=== PATIENT | female | born 1975 | race Caucasian/White ===

== ENCOUNTER 2018-10-08 19:52 | Emergency (ER) | payer OTHER ==
[~2018-10-08] VITALS: Ht 165.1 cm; Wt 77.1 kg
--- OUTSIDE RECORDS SUMMARY | 2018-10-08 19:55 | XMS REPORT | Clinical Summary ---
Author Author [facility] Organization [facility] Address Unknown Phone Unavailable Care Team Providers Care Candy Counter Clerk Name Role Phone Monty Jones MD PCP Allergies No Known Allergies Medications End Date Status Medication Sig Dispensed Refills Start Date Active thyroid, pork, (ARMOUR [place] 0 THYROID) 15 mg tablet Thyroid 15 mg tablet Active spironolactone spironolacton 0 (ALDACTONE) 25 MG tablet e 25 mg tablet Active nitrofurantoin Take 50 mg by 0 (MACRODANTIN) 50 MG mouth 4 capsule (four) times a day. Active DIINDOLYLMETHANE, BULK, 0 MISC 12/08/2018 Active nitrofurantoin, Take one 100 90 capsule 1 macrocrystal-monohydrate, mg tablet 8 (MACROBID) 100 MG before and capsuleIndications: after Recurrent UTI intercourse as needed. 01/06/2018 Discontinued nitrofurantoin, nitrofurantoi 0 macrocrystal-monohydrate, n (MACROBID) 100 MG capsule monohydrate/m acrocrystals 100 mg capsule Take 1 capsule every 12 hours by oral route for 7 days. 01/11/2018 acetaminophen-codeine Take 1 tablet 15 tablet 0 (TYLENOL WITH CODEINE #3) by mouth 8 300-30 mg per tablet every 6 (six) hours as needed for moderate pain for up to 5 days. 01/13/2018 ciprofloxacin (CIPRO) 500 Take 1 tablet 14 tablet 0 MG tablet (500 mg 8 total) by mouth 2 (two) times a day for 7 days. 01/18/2018 terconazole (TERAZOL 7) Insert 1 45 g 0 0.4 % vaginal cream applicator 8 into the vagina nightly for 7 days. 04/16/2018 sulfamethoxazole-trimetho Take 1 tablet 20 tablet 0 prim (BACTRIM DS) 800-160 by mouth 2 8 mg per tablet (two) times a day for 10 days. smx-tmp DS (BACTRIM) 800-160 mg tabs (1tab q12 D10) 05/06/2018 acetaminophen-codeine Take 1 tablet 14 tablet 0 (TYLENOL WITH CODEINE #3) by mouth 8 300-30 mg per tablet every 6 (six) hours as needed for moderate pain for up to 30 days. 04/21/2018 sulfamethoxazole-trimetho Take one 6 tablet 0 prim (BACTRIM DS) 800-160 800mg tablet 8 mg per tabletIndications: twice daily Prophylactic antibiotic the day before, the day of and the day after the procedure. Status Hospital, Clinic, or Ordered Dose Route Frequency Start End Date Other Facility Date Administered Medication Ended lidocaine HCl (URO-JET) 2 TP once 04/20/20 % jellyIndications: 18 8 History of suburethral sling procedure, Recurrent UTI Active Problems Problem Noted Date Pelvic pain 03/05/2018 Levator spasm 03/05/2018 Pelvic floor weakness in female 03/05/2018 History of suburethral sling procedure 03/05/2018 Chronic constipation 03/05/2018 Recurrent UTI 03/05/2018 History of Crohn's disease 03/05/2018 Encounters Care Team Description Date Type Specialty Camille Braun MA 05/22/2018 Telephone Urogynecology Margot Hammond MD Recurrent UTI (Primary Dx); Chronic pelvic pain in female; Hematuria, unspecified type 04/30/2018 Office Visit Urology Ximena Pratt MD MPH History of suburethral sling procedure (Primary Dx); Hematuria, gross; Suburethral cyst; 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 Office Visit Urogynecology Ximena Pratt MD MPH Recurrent UTI (Primary Dx); History of suburethral sling procedure; Prophylactic antibiotic; Hematuria, gross 04/20/2018 Procedure visit Urogynecology Ximena Pratt MD MPH 04/20/2018 Orders Only Urogynecology Anabel Talavera, DIMA Hematuria, gross (Primary Dx) 04/13/2018 Telephone Urogynecology Camille Braun MA 04/10/2018 Telephone Urogynecology Susan Cha MD Acute UTI (Primary Dx) 04/06/2018 Emergency Emergency Medicine Anabel Talavera RN 04/06/2018 Telephone Urogynecology Anabel Talavera RN 04/06/2018 Telephone Urogynecology Anabel Talavera RN Recurrent UTI (Primary Dx) 03/10/2018 Refill Urogynecology Ximena Pratt MD MPH Dyspareunia in female (Primary Dx); Pelvic pain; Levator spasm; Pelvic floor weakness in female; History of suburethral sling procedure; Chronic constipation; Recurrent UTI; History of Crohn's disease 03/05/2018 Office Visit Urogynecology Beryl Parks MD Pelvic pain (Primary Dx); Urinary tract infection due to extended-spectrum beta lactamase (ESBL) producing Escherichia coli 01/28/2018 Office Visit Obstetrics and Gynecology Beryl Parks MD Female pelvic pain; Generalized abdominal pain 01/28/2018 Ancillary Obstetrics and Gynecology Procedure Beryl Parks MD 01/11/2018 Orders Only Obstetrics and Gynecology Erasto Carnes DO Acute cystitis without hematuria (Primary Dx) 01/06/2018 Emergency Emergency Medicine Nik Velázquez LVN 01/05/2018 Telephone Obstetrics and Gynecology Beryl Parks MD Female pelvic pain (Primary Dx); Generalized abdominal pain 12/31/2017 Office Visit Obstetrics and Gynecology after 10/07/2017 Family History Medical History Relation Name Comments Breast cancer Maternal Aunt Depression Mother Hernia Mother Interstitial cystitis Mother Cancer Sister Depression Sister Relation Name Status Comments Father Maternal Aunt Mother Sister Social History Date Tobacco Use Types Packs/Day Years Used Former Smoker Cigarettes Smokeless Tobacco: Never Used Alcohol Use Drinks/Week oz/Week Comments No occasional Sex Assigned at Date Recorded Not on file Industry Job Start Date Occupation Not on file Not on file Not on file Travel End Travel History Travel Start No recent travel history available. Last Filed Vital Signs Time Taken Vital Sign Reading 04/30/2018 1:48 PM CDT Blood Pressure 130/85 04/30/2018 1:48 PM CDT Pulse 80 04/29/2018 11:25 AM CDT Temperature 36.6 C (97.8 F) 04/06/2018 2:06 PM CDT Respiratory Rate 15 04/06/2018 2:06 PM CDT Oxygen Saturation 93% - Inhaled Oxygen - Concentration 04/30/2018 1:48 PM CDT Weight 80.7 kg (178 lb) 04/30/2018 1:48 PM CDT Height 165.1 cm (5' 5") 04/30/2018 1:48 PM CDT Body Mass Index 29.62 Plan of Treatment Health Maintenance Due Date Last Done Comments CERVICAL CANCER SCREENING 1998 INFLUENZA VACCINE 02/04/2019 Procedures Comments Procedure Name Priority Date/Time Associated Diagnosis POC URINALYSIS DIPSTICK Routine 04/30/2018 Recurrent UTI 2:26 PM CDT [id number] Routine 04/30/2018 Recurrent UTI 2:26 PM CDT CYTOLOGY NON-FIELD CONTACT PERSON I Routine 04/20/2018 4:14 PM CDT CYTOLOGY Routine 04/20/2018 (NON-GYNECOLOGICAL) 4:14 PM CDT REQUEST TEST IN QUESTION - CYTO, Routine 04/20/2018 NONGYN 4:14 PM CDT POC URINALYSIS DIPSTICK Routine 04/20/2018 History of suburethral 3:13 PM CDT sling procedure Recurrent UTI CYSTOURETHROSCOPY SIMPLE Routine 04/20/2018 History of suburethral (NO SEDATION) 2:30 PM CDT sling procedure Recurrent UTI CT RENAL STONE PROTOCOL STAT 04/06/2018 4:11 PM CDT ESTIMATED GFR STAT 04/06/2018 2:40 PM CDT COMPREHENSIVE METABOLIC STAT 04/06/2018 PANEL 2:40 PM CDT HC COMPLETE BLD COUNT STAT 04/06/2018 W/AUTO DIFF 2:40 PM CDT URINALYSIS SCREEN AND Routine 04/06/2018 MICROSCOPY, WITH REFLEX 2:32 PM CDT TO CULTURE URINE CULTURE Routine 04/06/2018 2:32 PM CDT GRAM STAIN Routine 04/06/2018 2:32 PM CDT URINE CULTURE Routine 03/05/2018 Pelvic pain 4:11 PM CDT Recurrent UTI POC URINALYSIS DIPSTICK Routine 03/05/2018 Pelvic pain 1:57 PM CDT Recurrent UTI MEASURE POST VOID Routine 03/05/2018 Pelvic pain RESIDUAL 12:45 PM CDT Recurrent UTI URINE CULTURE Routine 01/28/2018 Pelvic pain 5:14 PM CDT Urinary tract infection due to extended-spectrum beta lactamase (ESBL) producing Escherichia coli US PELVIC TRANSVAGINAL Routine 01/28/2018 Female pelvic pain 4:26 PM CDT Generalized abdominal pain CT ABDOMEN PELVIS W STAT 01/06/2018 CONTRAST 10:21 PM CDT AMYLASE LEVEL STAT 01/06/2018 8:52 PM CDT ZZESTIMATED GFR STAT 01/06/2018 8:52 PM CDT PARTIAL THROMBOPLASTIN STAT 01/06/2018 TIME (PTT) 8:52 PM CDT PROTHROMBIN TIME WITH INR STAT 01/06/2018 8:52 PM CDT LIPASE LEVEL STAT 01/06/2018 8:52 PM CDT COMPREHENSIVE METABOLIC STAT 01/06/2018 PANEL 8:52 PM CDT HC COMPLETE BLD COUNT STAT 01/06/2018 W/AUTO DIFF 8:52 PM CDT HCG QUALITATIVE, SERUM STAT 01/06/2018 SCREEN 8:52 PM CDT URINALYSIS SCREEN AND Routine 01/06/2018 MICROSCOPY, WITH REFLEX 8:52 PM CDT TO CULTURE GRAM STAIN Routine 01/06/2018 8:52 PM CDT URINE CULTURE Routine 01/06/2018 8:52 PM CDT NUSWAB VAGINITIS (VG) Routine 12/31/2017 Female pelvic pain 5:15 PM CDT Generalized abdominal pain after 10/07/2017 Results * POC BLADDER SCAN/PVR (04/30/2018 2:26 PM CDT) Test Results 23mlComment: bladder scan Specimen Urine * POC urinalysis dipstick (04/30/2018 2:26 PM CDT) Only the most recent of 3 results within the time period is included. Color urine, POC Yellow Clarity urine, POC Clear Glucose urine, POC Negative Negative Bilirubin urine, POC Negative Negative Ketones urine, POC Negative Negative Specific gravity urine, 1.015 1.005 - 1.030 POC Blood urine, POC Trace (A) Negative pH urine, POC 6.5 5.0, 5.5, 6.0, 6.5, 7.0, 7.5, 8.0, 8.5 Protein urine, POC Negative Negative Urobilinogen urine, POC <2.0 <2.0 Nitrite urine, POC Negative Negative Leukocyte esterase urine, Negative Negative POC Specimen Urine * TEST IN QUESTION - CYTO, NONGYN (04/20/2018 4:14 PM CDT) FINAL RESOLUTION CATH SPCM [employer] BOLIVAR Narrative Performed At FASTING: UNKNOWN QUEST Resulting Agency Comment Performing Organization Information: Site ID: [id number] Name: [facility] Address: [address] [place] [id number] Director: Kenrick House Performing Organization Address City/State/Zipcode Phone Number [employer] [place] [phone] * Cytology Non-Corporate Staff Accountant I (04/20/2018 4:14 PM CDT) Source CATH URINE [facility] Gross description: Comment: [facility] Catheterized urine consists of [facility] cc clear yellow fluid, 1 ThinPrep. Verified as to patient ID/name. Gross exam(s) performed at: [address] [id number] [employer] Manager: KENRICK HOUSE MD Diagnosis Comment: [facility] Negative for malignant cells. [facility] See microscopic description. MICROSCOPIC DESCRIPTION: One ThinPrep is examined.The specimen consists of benign urothelial cells and squamous cells. Narrative Performed At FASTING: UNKNOWN QUEST Resulting Agency Comment Performing Organization Information: Site ID: [id number] Name: [facility], Address: [address] [place] [address] Director: Kenrick House MD Performing Organization Address City/[facility] Cent[facility] Phone Number [place] [phone] [facility] * Cytology (non-gynecological) request (04/20/2018 4:14 PM CDT) Clinical information Comment: None given [facility] Screener Comment: [facility] VXJ, CT(ASCP) [facility] CT screening location: [place] [address] Pathologist Comment: [facility] Naila Rodríguez MD, Board [facility] Certified in Anatomic Pathology and subspeciality in Cytopathology. [phone] (electronic signature) Narrative Performed At FASTING: UNKNOWN QUEST Resulting Agency Comment Performing Organization Information: Site ID: [id number] Name: [facility], Address: [address] [place] [address] Director: Kenrick House MD Performing Organization Address City/[facility] Medical [place] [address] [facility] * Cystourethroscopy simple (no sedation) (04/20/2018 2:30 PM CDT) Narrative Performed At Ximena Pratt MD MPH 04/20/20183:56 PM Cystourethroscopy simple (no sedation) Date/Time: 04/20/2018 2:30 PM Performed by: XIMENA PRATT Authorized by: XIMENA PRATT Consent: Verbal consent obtained. Written consent obtained. Risks and benefits: risks, benefits and alternatives were discussed Consent given by: patient Patient understanding: patient states understanding of the procedure being performed Patient consent: the patient's understanding of the procedure matches consent given Procedure consent: procedure consent matches procedure scheduled Relevant documents: relevant documents present and verified Required items: required blood products, implants, devices, and special equipment available Patient identity confirmed: verbally with patient Time out: Immediately prior to procedure a "time out" was called to verify the correct patient, procedure, equipment, director of operations support and site/side marked as required. Preparation: Patient was prepped and draped in the usual sterile fashion. Local anesthesia used: yes Anesthesia method: Topical. Anesthesia: Local anesthesia used: yes Local anesthetic: Urojet. Anesthetic total: 10 mL Sedation: Patient sedated: no * CT Renal Stone Protocol (04/06/2018 4:11 PM CDT) Narrative Performed At EXAMINATION:CT RENAL STONE PROTOCOL [facility] CLINICAL HISTORY:left flank paindysuria TECHNIQUE: Multiple axial images of the abdomen and pelvis were obtained without intravenous administration of iodinated contrast. Sagittal and coronal computerized reformatted images were also obtained. The lack of intravenous contrast reduces the sensitivity of detecting solid organ disease.Automatic exposure control and iterative reconstruction techniques used to reduce dose. COMPARISON:January 06, 2018 FINDINGS: Kidneys are within normal limits. No focal mass, hydronephrosis or calculi present The liver, gallbladder, spleen, pancreas and adrenals are within normal limits. No significant lymphadenopathy free fluid present The appendix is been removed Diffuse diverticulosis of colon without evidence of diverticulitis. Small bowel is unremarkable Small fat-containing umbilical hernia Pelvis: No significant lymphadenopathy, solid masses or free fluid present Degenerative changes are present throughout the bony structures without evidence of a suspicious focal lesion. Bases are clear IMPRESSION: No renal calculi Diverticulosis in the colon without evidence of diverticulitis [id number] Procedure Note Hm Interface, Radiology Results Incoming - 04/06/2018 4:18 PM CDT EXAMINATION: CT RENAL STONE PROTOCOL CLINICAL HISTORY: left flank pain dysuria TECHNIQUE: Multiple axial images of the abdomen and pelvis were obtained without intravenous administration of iodinated contrast. Sagittal and coronal computerized reformatted images were also obtained. The lack of intravenous contrast reduces the sensitivity of detecting solid organ disease.Automatic exposure control and iterative reconstruction techniques used to reduce dose. COMPARISON: January 06, 2018 FINDINGS: Kidneys are within normal limits. No focal mass, hydronephrosis or calculi present The liver, gallbladder, spleen, pancreas and adrenals are within normal limits. No significant lymphadenopathy free fluid present The appendix is been removed Diffuse diverticulosis of colon without evidence of diverticulitis. Small bowel is unremarkable Small fat-containing umbilical hernia Pelvis: No significant lymphadenopathy, solid masses or free fluid present Degenerative changes are present throughout the bony structures without evidence of a suspicious focal lesion. Bases are clear IMPRESSION: No renal calculi Diverticulosis in the colon without evidence of diverticulitis [id number] Performing Organization Address City/[facility]/Zipcode Phone Number [facility] [address] [place] [address] * Estimated GFR (04/06/2018 2:40 PM CDT) Estimated GFR >=90 mL/min/1.73 m2 [facility] DEPARTMENT OF Comment: PATHOLOGY AND CatergoryUnitsInte GENOMIC MEDICINE rpretation G1 >=90 Normal or high G2 60-89Mildly decreased [id number] Mildly to moderately decreased [id number] Moderately to severely decreased G4 15-29Severely decreased G5 <15Kidney failure The eGFR was calculated using the Chronic Kidney Disease Epidemiology Collaboration (CKD-EPI) equation. Interpretation is based on recommendations of the National Kidney Foundation-Kidney Disease Outcomes Quality Initiative (NKF-KDOQI) published in 2014. Specimen Plasma specimen Performing Organization Address City/State/Zipcode Phone Number [place] [phone] [facility]. [address] [place] [address] PATHOLOGY AND GENOMIC MEDICINE * CBC with platelet and differential (04/06/2018 2:40 PM CDT) Only the most recent of 2 results within the time period is included. WBC 10.4 4.5 - 11.0 k/uL [facility] DEPARTMENT OF PATHOLOGY AND GENOMIC MEDICINE RBC 5.03 4.20 - 5.50 M/uL [facility] DEPARTMENT OF PATHOLOGY AND GENOMIC MEDICINE HGB 15.5 14.0 - 18.0 g/dL [facility] DEPARTMENT OF PATHOLOGY AND GENOMIC MEDICINE HCT 44.7 37.0 - 47.0 % [facility] DEPARTMENT OF PATHOLOGY AND GENOMIC MEDICINE MCV 88.9 82.0 - 100.0 fL [facility] DEPARTMENT OF PATHOLOGY AND GENOMIC MEDICINE MCH 30.8 27.0 - 34.0 pg [facility] DEPARTMENT OF PATHOLOGY AND GENOMIC MEDICINE MCHC 34.7 31.0 - 37.0 g/dL [facility] DEPARTMENT OF PATHOLOGY AND GENOMIC MEDICINE RDW - SD 38.4 37.0 - 55.0 fL [facility] DEPARTMENT OF PATHOLOGY AND GENOMIC MEDICINE MPV 10.1 8.8 - 13.2 fL [facility] DEPARTMENT OF PATHOLOGY AND GENOMIC MEDICINE Platelet count 252 150 - 400 K/uL [facility] DEPARTMENT OF PATHOLOGY AND GENOMIC MEDICINE Nucleated RBC 0.00 /100 WBC [facility] DEPARTMENT OF PATHOLOGY AND GENOMIC MEDICINE Neutrophils 74.6 (H) 39.0 - 69.0 % [facility] DEPARTMENT PATHOLOGY AND GENOMIC MEDICINE Lymphocytes 15.4 (L) 25.0 - 45.0 % [facility] DEPARTMENT OF PATHOLOGY AND GENOMIC MEDICINE Monocytes 8.3 0.0 - 10.0 % [facility] DEPARTMENT OF PATHOLOGY AND GENOMIC MEDICINE Eosinophils 0.9 0.0 - 5.0 % [facility] DEPARTMENT PATHOLOGY AND GENOMIC MEDICINE Basophils 0.5 0.0 - 1.0 % [facility] DEPARTMENT OF PATHOLOGY AND GENOMIC MEDICINE Immature granulocytes 0.3Comment: "Immature 0.0 - 1.0 % [facility] DEPARTMENT OF granulocytes" (promyelocytes, PATHOLOGY AND myelocytes, metamyelocytes) [facility] Specimen Blood Performing Organization Address City/State/Zipcode Phone Number [address] [place] [address] PATHOLOGY AND [employer] MEDICINE * Comprehensive metabolic panel (04/06/2018 2:40 PM CDT) Only the most recent of 2 results within the time period is included. Sodium 140 135 - 148 mEq/L [facility] DEPARTMENT OF PATHOLOGY AND GENOMIC MEDICINE Potassium 4.0 3.5 - 5.0 mEq/L [facility] DEPARTMENT OF PATHOLOGY AND GENOMIC MEDICINE Chloride 102 99 - 109 mEq/L [facility] OF PATHOLOGY AND GENOMIC MEDICINE CO2 27 24 - 31 mEq/L [facility] OF PATHOLOGY AND GENOMIC MEDICINE Anion gap 11@ANIO 7 - 15 mEq/L [facility] DEPARTMENT OF PATHOLOGY AND GENOMIC MEDICINE BUN 9 8 - 24 mg/dL [facility] PATHOLOGY AND GENOMIC MEDICINE Creatinine 0.60 0.50 - 0.90 mg/dL [facility] PATHOLOGY AND GENOMIC MEDICINE Glucose 89 65 - 99 mg/dL [facility] OF PATHOLOGY AND GENOMIC MEDICINE Calcium 9.4 8.6 - 10.6 mg/dL [facility] OF PATHOLOGY AND GENOMIC MEDICINE Protein 7.3 6.3 - 8.2 g/dL [facility] DEPARTMENT OF PATHOLOGY AND GENOMIC MEDICINE Albumin 4.8 3.5 - 5.0 g/dL [facility] DEPARTMENT OF PATHOLOGY AND GENOMIC MEDICINE A/G ratio 1.92 0.70 - 3.80 [facility] DEPARTMENT PATHOLOGY AND GENOMIC MEDICINE Alkaline phosphatase 67 30 - 115 U/L [facility] DEPARTMENT PATHOLOGY AND GENOMIC MEDICINE AST 20 15 - 46 U/L [facility] DEPARTMENT PATHOLOGY AND GENOMIC MEDICINE ALT 24 10 - 55 U/L [facility] DEPARTMENT PATHOLOGY AND GENOMIC MEDICINE Total bilirubin 0.7 0.2 - 1.2 mg/dL [facility] PATHOLOGY AND GENOMIC MEDICINE Specimen Plasma specimen Performing Organization Address City/State/Zipcode Phone Number [facility] [address] [facility] [address] [place] [address] PATHOLOGY AND GENOMIC MEDICINE * Urinalysis screen and microscopy, with reflex to culture (04/06/2018 2:32 PM CDT) Only the most recent of 2 results within the time period is included. Specimen site Clean catch [facility] DEPARTMENT OF PATHOLOGY AND GENOMIC MEDICINE Color, UA Yellow YELLOW [facility] DEPARTMENT OF PATHOLOGY AND GENOMIC MEDICINE Appearance, UA Cloudy (A) Clear [facility] DEPARTMENT OF PATHOLOGY AND GENOMIC MEDICINE Specific gravity, UA 1.016 1.005 - 1.030 [facility] DEPARTMENT OF PATHOLOGY AND GENOMIC MEDICINE pH, UA 6.0 5.0 - 8.0 [facility] DEPARTMENT OF PATHOLOGY AND GENOMIC MEDICINE Protein, UA 2+ (A) Negative [facility] DEPARTMENT OF PATHOLOGY AND GENOMIC MEDICINE Glucose, UA Negative Negative [facility] DEPARTMENT OF PATHOLOGY AND GENOMIC MEDICINE Ketones, UA Negative Negative [facility] DEPARTMENT OF PATHOLOGY AND GENOMIC MEDICINE Bilirubin, UA Negative Negative [facility] DEPARTMENT OF PATHOLOGY AND GENOMIC MEDICINE Blood, UA Large (A) Negative [facility] DEPARTMENT OF PATHOLOGY AND GENOMIC MEDICINE Nitrite, UA Negative NEGATIVE [facility] DEPARTMENT OF PATHOLOGY AND GENOMIC MEDICINE Urobilinogen, UA <2.0 <2.0 E.U./dL [facility] DEPARTMENT PATHOLOGY AND GENOMIC MEDICINE Leukocyte esterase, UA Large (A) Negative [facility] DEPARTMENT OF PATHOLOGY AND GENOMIC MEDICINE Epithelial cells, UA 4 0 - 15 /HPF [facility] DEPARTMENT OF PATHOLOGY AND GENOMIC MEDICINE WBC, UA >200 (H) 0 - 5 /Hpf [facility] DEPARTMENT OF PATHOLOGY AND GENOMIC MEDICINE RBC, UA >200 (H) 0 - 5 /HPF [facility] DEPARTMENT OF PATHOLOGY AND GENOMIC MEDICINE Bacteria, UA None seen None seen [facility] DEPARTMENT OF PATHOLOGY AND GENOMIC MEDICINE WBC clumps, UA Few (A) [facility] DEPARTMENT OF PATHOLOGY AND GENOMIC MEDICINE Yeast, UA None seen None Seen [facility] DEPARTMENT OF PATHOLOGY AND GENOMIC MEDICINE Yeast with pseudohyphae, None seen [facility] DEPARTMENT OF UA PATHOLOGY AND GENOMIC MEDICINE Specimen Urine Performing Organization Address [facility]/Zipcode Phone Number [facility] [place] [address] [facility] [address] [place] [address] PATHOLOGY AND GENOMIC MEDICINE * Gram stain (04/06/2018 2:32 PM CDT) Only the most recent of 2 results within the time period is included. Gram stain result Occasional WBC's [facility] DEPARTMENT OF Occasional Gram positive rods PATHOLOGY AND Comment: GENOMIC MEDICINE Specimen Information Specimen Source: Urine Specimen Site: Clean catch Specimen Urine Performing Organization Address [facility] Centercode Phone Number [facility] DEPARTMENT OF [address] [place] [address] PATHOLOGY AND GENOMIC MEDICINE * Urine culture (04/06/2018 2:32 PM CDT) Only the most recent of 4 results within the time period is included. Urine culture isolate Mixed Gram positive taylor [facility] DEPARTMENT OF 10-2 cfu/ml PATHOLOGY AND (A) GENOMIC MEDICINE Comment: Specimen Information Specimen Source: Urine Specimen Site: Clean catch Specimen Urine Performing Organization Address [facility] Phone Number [facility] DEPARTMENT OF [address] [place] [address] PATHOLOGY AND GENOMIC MEDICINE * Measure post void residual (03/05/2018 12:45 PM CDT) Specimen Urine Narrative Performed At 50 ml collected via f. Cath * US Pelvic Transvaginal (01/28/2018 4:26 PM CDT) Narrative Performed At [facility] S/P HYSTERECTOMY RT OV=3.1 X 1.8 X 2.5 CM LT OV 3.4 X 2.3 X 1.6 CM BILAT OV WNL I have personally reviewed the images, and I agree with the above assessment Beryl Parks MD Performing Organization Address [facility]/Zipcode Phone Number [facility] [address] [place] [phone] * CT Abdomen Pelvis W Contrast (01/06/2018 10:21 PM CDT) Narrative Performed At EXAMINATION:CT ABDOMEN PELVIS W CONTRAST RADIANT CLINICAL HISTORY:abdominal pain TECHNIQUE: Multiple axial images of the abdomen and pelvis were obtained following intravenous administration of iodinated contrast. Sagittal and coronal computerized reformatted images were also obtained. CT imaging was performed with iterative reconstruction technique and/or automated exposure control to reduce radiation dose. COMPARISON:05/28/2013 IMPRESSION: Eventration of right hemidiaphragm is seen. Liver, gallbladder, spleen, pancreas, adrenal glands are normal. Kidneys, ureters are normal. Thick-walled appearance of the bladder is seen, suspicious for cystitis. No free intraperitoneal fluid or air. Diverticulosis is seen without diverticulitis. The appendix is surgically absent. No gastrointestinal tract obstruction. No acute osseous abnormalities. CONCLUSION: Thick-walled appearance of the bladder is seen, suspicious for cystitis. [facility]-[id number] Procedure Note Interface, Radiology Results Incoming - 01/06/2018 10:33 PM CDT EXAMINATION: CT ABDOMEN PELVIS W CONTRAST CLINICAL HISTORY: abdominal pain TECHNIQUE: Multiple axial images of the abdomen and pelvis were obtained following intravenous administration of iodinated contrast. Sagittal and coronal computerized reformatted images were also obtained. CT imaging was performed with iterative reconstruction technique and/or automated exposure control to reduce radiation dose. COMPARISON: 05/28/2013 IMPRESSION: Eventration of right hemidiaphragm is seen. Liver, gallbladder, spleen, pancreas, adrenal glands are normal. Kidneys, ureters are normal. Thick-walled appearance of the bladder is seen, suspicious for cystitis. No free intraperitoneal fluid or air. Diverticulosis is seen without diverticulitis. The appendix is surgically absent. No gastrointestinal tract obstruction. No acute osseous abnormalities. CONCLUSION: Thick-walled appearance of the bladder is seen, suspicious for cystitis. [facility]-[id number] Performing Organization Address City/State/Zipcode Phone Number [facility] [address] [place] [address] * Estimated GFR (01/06/2018 8:52 PM CDT) GFR Non Af Amer >90 mL/min/1.73 m2 [facility] DEPARTMENT OF PATHOLOGY AND GENOMIC MEDICINE GFR Af Amer >90 mL/min/1.73 m2 [facility] DEPARTMENT OF Comment: PATHOLOGY AND Chronic kidney disease: <60 GENOMIC MEDICINE mL/min/1.73m2 Kidney failure: <15 mL/min/1.73m2 The estimated GFR is calculated from the IDMS-traceable Modification of Diet in Renal Disease Equation. The accuracy of the calculation is poor when the creatinine is normal. Calculated values >90 mL/min/1.73m2 are not reported. This equation has not been validated in children (<18 years), women, the elderly (>70 years), or ethnic groups other than Caucasians and Americans. Specimen Plasma specimen Performing Organization Address [facility] Phone Number [address] [place] [address] PATHOLOGY AND [employer] MEDICINE * Partial thromboplastin time, activated (01/06/2018 8:52 PM CDT) PTT 32.2 23.0 - 36.0 sec [facility] DEPARTMENT OF Comment: PATHOLOGY AND PTT therapeutic range for [facility] MEDICINE unfractionated heparin is 61.0-112.0 seconds which corresponds to Anti-Xa 0.3-0.7 U/ml. Specimen Blood Performing Organization [facility] Number [address] [place] [address] PATHOLOGY AND [employer] MEDICINE * Prothrombin time with INR (01/06/2018 8:52 PM CDT) Prothrombin time 13.4 12.0 - 15.0 sec [facility] DEPARTMENT OF PATHOLOGY AND [employer] MEDICINE INR 1.0 [facility] DEPARTMENT OF Comment: PATHOLOGY AND The International Normalized [facility] MEDICINE Ratio (INR) is a therapeutic monitoring tool for patients who are stable on oral anticoagulant therapy. An INR of 2.0-3.0 is suggested for deep vein thrombosis/pulmonary embolism. Specimen Blood Performing Organization [facility] Number [address] [place] [address] PATHOLOGY AND [employer] MEDICINE * hCG qualitative, serum screen (01/06/2018 8:52 PM CDT) hCG qualitative, serum Negative [facility] DEPARTMENT OF PATHOLOGY AND GENOMIC MEDICINE Specimen Blood Performing Organization [facility] Number [address] [place] [address] PATHOLOGY AND [employer] MEDICINE * Lipase level (01/06/2018 8:52 PM CDT) Lipase 24 13 - 60 U/L [facility] DEPARTMENT OF PATHOLOGY AND GENOMIC MEDICINE Specimen Plasma specimen Performing Organization [facility] Number [address] [place] [address] PATHOLOGY AND GENOMIC MEDICINE * Amylase level (01/06/2018 8:52 PM CDT) Amylase 44 13 - 73 U/L [facility] DEPARTMENT OF PATHOLOGY AND GENOMIC MEDICINE Specimen Plasma specimen Performing Organization Address [facility] Phone Number [facility] DEPARTMENT [address] [place] [address] PATHOLOGY AND GENOMIC MEDICINE * NuSwab Vaginitis (VG) (12/31/2017 5:15 PM CDT) Atopobium vaginae Low - 0 Score [facility] BVAB 2 Low - 0 Score [facility] Megasphaera species Low - 0 Score [facility] Comment: Calculate total score by adding the 3 individual bacterial vaginosis (BV) marker scores together.Total score is interpreted as follows: Total score 0-1: Indicates the absence of BV. Total score 2: Indeterminate for BV. Additional clinical data should be evaluated to establish a diagnosis. Total score 3-6: Indicates the presence of BV. This test was developed and its performance characteristics determined by [facility].It has not been cleared or approved by the Food and Drug Administration.The FDA has determined that such clearance or approval is not necessary. Gladis albicans, SANTY Positive (A) Negative [facility] C. glabrata, DNA Negative Negative [facility] Comment: This test was developed and its performance characteristics determined by [facility].It has not been cleared or approved by the Food and Drug Administration.The FDA has determined that such clearance or approval is not necessary. Trichomonas vag by SANTY Negative Negative [facility] Specimen Swab Narrative Performed At Performed at: - [facility] [address] [place], [id number] [employer]ator: Nikita Villalpando MD, Phone:[phone] Performing Organization Address City/State/Zipcode Phone Number [facility] after 10/07/2017 Insurance Payer Benefit Subscriber ID Type Phone Address Plan / Group [employer] OPEN xxxxxxxxxxx HMO ACCESS/NET WORK Advance Directives Patient has advance care planning documents on file. For more information, marcus tapia contact: Clint Marie [address] [place] [address]
--- OUTSIDE RECORDS SUMMARY | 2018-10-08 19:55 | XMS REPORT ---
Author Author [facility] Address Unknown Phone Unavailable Care Team Providers Care Head Neck Surgeon Name Role Phone Unavailable Unavailable Payers Payer Name Policy Type Policy Number Effective Date Expiration Date Problems This patient has no known problems. Allergies, Adverse Reactions, Alerts Allergy Name Allergy Type Status Severity Reaction(s) Onset Date Inactive Date Treating Clinician Comments No Known Allergies DA Active U 2018-04-10 00:00:00 morphine DA Active SV 2011-10-21 00:00:00 Medications This patient has no known medications.
[2018-10-08] MEDS ORDERED: IBUPROFEN 600 MG TAB PO STA (22:52)
[2018-10-08] MEDS ORDERED: CLINDAMYCIN PHOS 900MG/ 50ML 50 ML IV STA (22:55)
[2018-10-08 23:22] LABS: BASOPHILS # (AUTO) 0.1 (0.0-0.1); BASOPHILS % 0.6 % (0.0-1.0); EOSINOPHILS # (AUTO) 0.2 (0.0-0.4); EOSINOPHILS % 2.4 % (0.0-6.0); HEMOGLOBIN 15.6 g/dL (12.0-16.0); LYMPHOCYTES # (AUTO) 1.8 (1.0-3.2); LYMPHOCYTES % 19.8 % (18.0-39.1); MEAN CORPUSCULAR HEMOGLOBIN 31.3 pg (28-32); MEAN CORPUSCULAR HGB CONC 33.9 g/dL (31-35); MEAN CORPUSCULAR VOLUME 92.2 fL (81-99); MONOCYTES # (AUTO) 0.9 (0.2-0.8); MONOCYTES % 10.2 % (4.4-11.3); NEUTROPHILS % 66.7 % (38.7-80.0); PLATELET COUNT 290 x10e3/uL (140-360); RED BLOOD COUNT 4.99 x10e6/uL (3.6-5.1); RED CELL DISTRIBUTION WIDTH 11.9 % (11.7-14.4)
[2018-10-08 23:43] LABS: BLOOD UREA NITROGEN 13 mg/dL (7-26); BUN/CREATININE RATIO 18 (6-25); CALCIUM 9.7 mg/dL (8.4-10.2); CREATININE, SERUM 0.74 mg/dL (0.57-1.11); EST GLOMERULAR FILTRATION RATE > 60 ML/MIN (60-); GLUCOSE 90 mg/dL (74-118)
[2018-10-08 23:58] LABS: ANION GAP 13.7 mmol/L (8-16); CARBON DIOXIDE 25 mmol/L (22-29); CHLORIDE 102 mmol/L (98-107); POTASSIUM 3.7 mmol/L (3.5-5.1); SODIUM 137 mmol/L (136-145)
[2018-10-09] MEDS ORDERED: TYLENOL WITH C1 EACH PO (00:13)
[2018-10-09 00:36] VITALS: BP 109/84
== END 2018-10-09 00:38 | disposition home or self-care (01) ==
LOC: ER 19:52
DX: L03.211 Cellulitis of face (principal); L03.113 Cellulitis of right upper limb; J45.909 Unspecified asthma, uncomplicated; E07.9 Disorder of thyroid, unspecified
CPT/HCPCS: 36415; 80048; 85025; 99283